=== PATIENT | male | born 1980 | race Caucasian/White ===

== ENCOUNTER 2017-05-27 19:25 | Emergency (ER) | payer SELFPAY ==
[~2017-05-27] VITALS: Ht 182.9 cm; Wt 88.5 kg
--- NOTE | ~2017-05-27 | EKG ---
PATIENT: CARLOTA ROBERTSON UNIT #: [id number] Ventricular Rate: 69 BPM Atrial Rate: 69 BPM P-R Interval: 134 ms QRS Duration: 88 ms Q-T Interval: 378 ms QTC Calculation(Bezet): 405 ms P [place]: 3 degrees Calculated R [place]: 53 degrees Calculated T [place]: 44 degrees Diagnosis Line: Normal sinus rhythm with sinus arrhythmia Diagnosis Line: Normal ECG Diagnosis Line: No previous ECGs available Diagnosis Line: Confirmed by ASHLEY PEREZ MD ([id number]) on Diagnosis Line: 05/28/2017 7:35:13 AM INTERPRETING MD: ANA GO
--- NOTE | ~2017-05-27 | CR72 ---
[facility] A Service of [facility] RADIOLOGY TEXT RESULTS PATIENT: CARLOTA ROBERTSON LOCATION: SED : 84 UNIT #: [id number] AGE: [address]: Tre Monique MD SEX: M ORDER DR: [id number] [address] [address] [id number] E MR#: [id number] Acc #: [id number] NAME: CARLOTA ROBERTSON : 1980 SEX: M STUDY DATE/TIME: 05/27/2017 20:55 UNIT: SED ROOM: STUDY DESCRIPTION: CR Chest Single View Portable Attending Physician: Tre Monique M.D. Ordering Physician: Tre Monique M.D. Primary Care Physician: Primary Care Physician No MEDICAL IMAGING REPORT This report is preliminary unless electronic signature is present. EXAM Portable chest, 05/27/2017 HISTORY 37-year-old male with shortness of air for 2 days. COMPARISON None. FINDINGS Two frontal views of the chest demonstrate clear lungs. No pleural effusion or pneumothorax. Heart size and mediastinum are normal. Pulmonary vasculature normal. IMPRESSION No acute cardiopulmonary findings. Dictated by... Slim Vidal M.D. THIS IS AN ELECTRONICALLY VERIFIED REPORT Slim Vidal M.D. at 05/28/2017 10:03 AM ESTEFANY/trena TD: 05/28/2017 04:16 JOB #: [id number] MEDICAL IMAGING REPORT Page 1 of 1
--- NOTE | ~2017-05-27 | CT71 ---
[facility] A Service of [facility] RADIOLOGY TEXT RESULTS PATIENT: CARLOTA ROBERTSON LOCATION: SED : [birth year] UNIT #: [id number] AGE: [address]: Tre Monique MD SEX: M ORDER DR: [id number] [address] [address] [id number] E MR#: [id number] Acc #: [id number] NAME: CARLOTA ROBERTSON : 1980 SEX: M STUDY DATE/TIME: 05/27/2017 21:06 UNIT: SED ROOM: STUDY DESCRIPTION: CT Head Wo Contrast Attending Physician: Tre Monique M.D. Ordering Physician: Tre Monique M.D. Primary Care Physician: Primary Care Physician No MEDICAL IMAGING REPORT This report is preliminary unless electronic signature is present. EXAM CT head without contrast 05/27/2017 HISTORY 37-year-old male with dizziness and weakness for 2 days. COMPARISON None. TECHNIQUE Routine unenhanced axial images performed through the brain. This CT exam was performed with one or more of the following radiation dose reduction techniques: automatic control, adjustment of mA and/or kV according to patient size, and iterative reconstruction. FINDINGS No hemorrhage, acute infarction, mass lesion, or abnormal extraaxial fluid collection. No midline shift or focal mass effect. Ventricular system normal in size and configuration. Cavum septum pellucidum and cavum vergae incidentally noted. No acute bony abnormality. Visualized paranasal sinuses demonstrate a small mucous retention cyst in the right posterior ethmoid air cell. Visualized mastoid air cells are clear. IMPRESSION 1. No acute intracranial abnormality. 2. Small mucous retention cyst right posterior ethmoid air cell Dictated by... Slim Vidal M.D. THIS IS AN ELECTRONICALLY VERIFIED REPORT Slim Vidal M.D. at 05/28/2017 10:03 AM [facility] A Service of [facility] RADIOLOGY TEXT RESULTS PATIENT: CARLOTA ROBERTSON LOCATION: SED : 84 UNIT #: [id number] AGE: [address]: Tre Monique MD SEX: M ORDER DR: ESTEFANY/peña TD: 05/28/2017 04:19 JOB #: [id number] MEDICAL IMAGING REPORT Page 1 of 1
[~2017-05-27 19:25] MED LIST: KEFLEX250 M2 PO; NORCO1 TAB 10/3 PO
[2017-05-27] MEDS ORDERED: NO MEDICATIONS (19:51)
[2017-05-27 20:56] LABS: URINE SOURCE CLEAN CATCH
[2017-05-27 20:59] LABS: URINE APPEARANCE CLEAR; URINE BLOOD NEG (NEG); URINE COLOR DK YELLOW; URINE GLUCOSE NEG (NORM); URINE KETONE TRACE (NEG); URINE LEUKOCYTE ESTERASE NEG (NEG); URINE NITRATE NEG (NEG); URINE PROTEIN TRACE (NEG); URINE SPECIFIC GRAVITY >=1.030 (1.003-1.035)
[2017-05-27 21:00] LABS: BASOPHIL# 0.1 X10e3 (0-0.3); BASOPHIL% 0.9 % (0-2.5); DIFF IND NO; EOSINOPHIL# 0.2 X10e3 (0-0.7); EOSINOPHIL% 2.8 % (0.0-7.0); HEMATOCRIT 45.3 % (38.0-50.0); HEMOGLOBIN 15.7 gm/dL (13.0-16.0); LYMPHOCYTE# 2.4 X10e3 (1.0-3.5); LYMPHOCYTE% 28.7 % (17.0-45.0); MEAN CELL VOLUME 94.6 FL (83-96); MEAN CORPUSCULAR HEMOGLOBIN 32.8 PG (28-34); MEAN CORPUSCULAR HGB CONC 34.6 g/dL (30-36); MONOCYTE# 0.7 X10e3 (0-1.0); NEUTROPHIL% 59.6 % (40-75); PLATELET COUNT 236 X10e3 (140-420); RED BLOOD COUNT 4.78 X10e (3.90-5.60); RED CELL DISTRIBUTION WIDTH 12.4 % (11.0-15.5); WHITE BLOOD COUNT 8.4 X10e3 (4.0-10.5)
[2017-05-27 21:03] LABS: MICRO INDICATED? YES; URINE BILIRUBIN NEG (NEG)
[2017-05-27 21:06] LABS: CULTURE INDICATED? NO; URINE BACTERIA NEG (NEG); URINE MUCUS PRESENT; URINE RBC 0-2 /[HPF] (0-2); URINE SQUAMOUS EPITHELIAL CELL OCCAS /[HPF]
[2017-05-27 21:09] LABS: AMPHETAMINE POS (NEG); BARBITURATES NEG (NEG); BENZODIAZEPINES NEG (NEG); COCAINE POS (NEG); MARIJUANA POS (NEG); OPIATES NEG (NEG); TRICYCLIC ANTIDEPRESSANTS NEG (NEG); U METHADONE NEG (NEG)
[2017-05-27 21:09] LABS: PROTHROMBIN TIME (PATIENT) 11.8 SECONDS (9.5-12.4)
[2017-05-27 21:16] LABS: PARTIAL THROMBOPLASTIN TIME 28.9 SECONDS (25.6-38.1)
[2017-05-27 21:17] LABS: POC - CKMB <1.0 ng/mL (0.0-7.9); POC - TROPONIN <0.05 ng/mL (<=0.05)
[2017-05-27 21:22] LABS: ALBUMIN SERUM 4.4 g/dL (3.5-5.0); BILIRUBIN,TOTAL 0.7 mg/dL (0.2-2.0); BUN/CREATININE RATIO 17.5; CALCIUM SERUM 8.9 mg/dL (8.4-10.2); CREATININE SERUM 1.2 mg/dL (0.6-1.4); GLOM FILT RATE Estimated 77.9 mL/min (>60); POTASSIUM 4.4 mmol/L (3.5-5.1); PROTEIN TOTAL SERUM 7.1 g/dL (6.0-8.3)
== END 2017-05-27 22:45 | disposition home or self-care (01) ==
LOC: SED 19:25
DX: R55 Syncope and collapse (principal); F19.10 Other psychoactive substance abuse, uncomplicated; J45.909 Unspecified asthma, uncomplicated; F17.200 Nicotine dependence, unspecified, uncomplicated; Z88.5 Allergy status to narcotic agent
CPT/HCPCS: 70450; 71010; 80053; 80307; 81003; 82553; 84443; 84484; 85025; 85610; 85730; 93005; 99285